=== PATIENT | male | born 1965 ===

== ENCOUNTER → 2021-11-16 17:56 | Outpatient (CLI) | payer OTHER, SELFPAY ==
[2021-11-16 18:55] LABS: COVID19 -Nasal RAPID Negative (Negative)
== END ==
PROVIDERS: Referring Provider Nurse Practitioner Family; Visit Provider Nurse Practitioner Family
DX: Z20.822 Contact with and (suspected) exposure to COVID-19 (principal)
CPT/HCPCS: 87635

== ENCOUNTER 2021-11-18 13:09 | Day surgery (SDC) | payer OTHER, SELFPAY ==
[2021-11-18] VITALS (7 sets, daily range): BP systolic 112–143; BP diastolic 61–93; PULSE 73–93; RESP 14–20; TEMP 36.8–37.5; O2SAT 92–96
--- NOTE | 2021-11-18 | PATH_ITS ---
[facility] Accession Number: [id number] . 01 Material submitted: . PART A: cecum - CECAL COLON POLYP 4MM PART B: colon - ASCENDING COLON POLYP 2MM PART C: colon - TRANSVERSE COLON TICK 4MM PART D: sigmoid colon - SIGMOID COLON POLYP X3 6MM EACH PART E: body - BIOPSY @ 20CM FRIABLE MUCOSA PART F: sigmoid colon - SIGMOID COLON POLYP 1CM . 02 Diagnosis: A. Cecal Colon Polyp 4 mm, Biopsy: Serrated lesion, cannot completely exclude sessile serrated adenoma. . B. Ascending Colon Polyp 2 mm: Tubular adenoma. . C. Transverse Colon Tick 4 mm: Inflamed granulation tissue with focal ulceration. . D. Sigmoid Colon Polyp x3, 6 mm Each: Multiple (approximately six) portions of hyperplastic polyp. . E. Biopsy at 20 cm, Friable Mucosa: Portion of colorectal mucosa s 1 with focal hyperplastic mucosal change. Superficial portion of colorectal mucosa x 1 with scattered benign lymphoid aggregates. Additional levels through the block are noncontributory. . F. Sigmoid Colon Polyp 1 cm: Portions of tubular adenoma. [facility] 11/23/2021 1638 Local . 02 Electronically signed: . Tamie Bauer MD, Pathologist NPI- [id number] . 01 Gross description: . Part A: CECAL COLON POLYP 4MM: Received in formalin is 1 fragment(s) of macdonald, soft tissue measuring 0.3 x 0.3 x 0.3 cm submitted entirely in 1 cassette(s) Part B: ASCENDING COLON POLYP 2MM: Received in formalin is 1 fragment(s) of macdonald, soft tissue measuring 0.2 x 0.2 x 0.2 cm submitted entirely in 1 cassette(s) Part C: TRANSVERSE COLON TICK 4MM: Received in formalin is 1 fragment(s) of macdonald, soft tissue measuring 0.2 x 0.2 x 0.2 cm submitted entirely in 1 cassette(s) Part D: SIGMOID COLON POLYP X3 6MM EACH: Received in formalin are multiple fragment(s) of macdonald, soft tissue measuring 0.1 x 0.1 x 0.1 cm to 0.3 x 0.3 x 0.3 cm submitted entirely in 1 cassette(s) Part E: BIOPSY @ 20CM FRIABLE MUCOSA: Received in formalin are 2 fragment(s) of macdonald, soft tissue measuring 0.2 x 0.2 x 0.2 cm to 0.3 x 0.3 x 0.2 cm submitted entirely in 1 cassette(s) Part F: SIGMOID COLON POLYP 1CM: Received in formalin are 2 fragment(s) of macdonald, soft tissue measuring 0.3 x 0.1 x 0.1 cm to 0.9 x 0.7 x 0.6 cm submitted entirely in 1 cassette(s) /DANIAL 11/21/2021 1916 Local . 02 Pathologist provided ICD-10: K63.5 . 02 CPT . 179514, 252591, 503315, 796567, 759573, 138715 Performed at: 01 [facility] [address] [place] [address], [place], [place] [id number] MD Christiano James MD Phone: [phone] Performed at: 02 [facility] [address] [place], [place] [id number] MD Haylee Smith MD Phone: [phone]
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
--- NOTE | 2021-11-18 12:01 | PM.OP.COLON ---
Operative Date/Time/Diagnoses Date of procedure: 11/18/21 Procedure Notes SCOAP/Timeout: 2:21 p.m. Procedure in detail: ENDOSCOPIST: Veronika Klein MD Sedation RN: Petra Hull RN Sedation start time: 2:22 p.m. Sedation end time: 2:56 p.m. PROCEDURE: Colonoscopy with cold snare and methylene blue left INDICATIONS: 1. Screening for colon cancer MEDICATION: Levsin 0.125 mg sublingual, incremental doses of Versed and fentanyl until appropriate level sedation achieved. ASA CLASS: 2 CECAL WITHDRAWAL TIME: 28 minutes COMPLICATIONS: None. EXTENT OF PROCEDURE: Cecum. QUALITY OF PREP: Good with portions of liquid stool. PROCEDURE: Prior to insertion of the colonoscope, a digital rectal examination was accomplished with circumferential palpation of the distal rectal mucosa without significant findings being noted. The high-definition colonoscope was passed into the rectum in the usual fashion and advanced over to the cecum without difficulty. The ileocecal valve, appendiceal stoma, and medial wall all could be inspected and a 4 mm polyp was seen and removed with cold biopsy forceps. ASCENDING COLON: As the colonoscope was withdrawn, care was taken to expose and inspect the haustral folds and a 2 mm polyp was seen and removed with cold biopsy forceps. HEPATIC FLEXURE: Normal, no polyps, diverticula or other abnormalities. TRANSVERSE COLON: Minor diverticulosis, otherwise normal no polyps or other abnormalities. DESCENDING COLON: Minor diverticulosis, otherwise, normal, no polyps or other abnormalities. SIGMOID COLON: At 20 cm there was a 1 cm longitudinal segment of friable mucosa, targeted biopsy taken x2. Otherwise, 4 small polyps between 2 and 6 mm were seen, removed with cold biopsy forceps. There was also a 1 cm polyp on a long stalk, lifted with methylene blue and removed with cold snare. Hemoclip placed at base with excellent hemostasis. RECTUM: Normal. J maneuver was produced. There was no significant perianal disease. The J maneuver was broken. The remainder of the rectum was inspected and there was no external hemorrhoid disease. The scope was withdrawn. IMPRESSION: 1. Cecum polyp x1, 4 mm, removed with cold biopsy forceps 2. Ascending polyp x1, 2 mm, removed with cold biopsy forceps 3. Sigmoid polyp x1, 1 cm, lifted with methylene blue and removed with cold snare 4. Sigmoid polyp x4, 2-6 mm, removed with cold biopsy forceps 5. Friable mucosa at 20 cm, targeted biopsy taken x2 6. Diverticulosis, left-sided, mild PLAN: 1. Follow-up in clinic status pathology results. The possibility of a missed lesion including a malignancy has been discussed with the patient previously. Potential alarm symptoms have been discussed and should be reported immediately.
[2021-11-18] MEDS: LACTATED RINGERS 1,000 ML 84 ML IV (14:11)
[2021-11-18] MEDS: fentaNYL 250 MCG/5 ML INJ IV (14:35)
[2021-11-18] MEDS: METHYLENE BLUE 50 MG/10 ML VIAL INJ (14:49)
[2021-11-18] MEDS: MIDAZOLAM 5 MG/5 ML VIAL IV (14:50)
--- NOTE | 2021-11-18 15:15 | SUR.PHASEI ---
Received to PACU after colonoscopy with sedation. Report received from CLOVIS Lambert.
== END 2021-11-18 15:52 | disposition home or self-care (01) ==
PROVIDERS: PCP Student in an Organized Health Care Education/Training Program; Referring Provider Student in an Organized Health Care Education/Training Program; Visit Provider Student in an Organized Health Care Education/Training Program
PROC: 0DJD8ZZ Inspection of Lower Intestinal Tract, Via Natural or Artificial Opening Endoscopic (ICD-10-PCS; CPT 45378; principal; 2021-11-18 14:30)
DX: Z12.11 Encounter for screening for malignant neoplasm of colon (principal); K57.30 Diverticulosis of large intestine without perforation or abscess without bleeding; D12.0 Benign neoplasm of cecum; D12.2 Benign neoplasm of ascending colon; K63.3 Ulcer of intestine; D12.5 Benign neoplasm of sigmoid colon
CPT/HCPCS: 45385; 45381; 45380; J2250; J3010; Q9968

== ENCOUNTER → 2025-10-19 16:20 | Outpatient (CLI) | payer OTHER, SELFPAY ==
--- NOTE | 2025-10-19 | DI.MRI.S_ITS ---
PROCEDURE: MR SHOULDER RT WO CON INDICATIONS: RIGHT SHOULDER PAIN TECHNIQUE: Noncontrast oblique coronal T2 fast spin echo with fat saturation, oblique sagittal T1 spin echo and T2 fast spin echo with fat saturation, axial T1 spin echo and T2 fast spin echo with fat saturation through the shoulder. COMPARISON: None. FINDINGS: Image quality: Excellent. Rotator cuff: There is low-grade articular and bursal surface partial thickness tear involving distal supraspinatus at its insertion on humeral head extending to musculotendinous junction. Distal infraspinatus tendinosis is seen. Low-grade intrasubstance partial-thickness tear involving distal subscapularis is noted. No full-thickness rotator cuff tendon rupture. Sagittal images demonstrate no significant rotator cuff muscle atrophy. Bones and bursae: Mild to moderate acromioclavicular joint osteoarthritic changes are seen. [id number] glenohumeral joint osteoarthritic changes also noted. Nonspecific subcortical cystic changes are noted involving anterior and lateral aspect of humeral head near rotator cuff tendon insertions. No acute fracture or dislocation. No suspicious intraosseous lesions. Type 1 acromion without an os acromiale. Small to moderate amount of joint effusion and subacromial subdeltoid bursal fluid is seen, no loose bodies. Capsule and soft tissues: T2 hyperintense signal and fraying involving superior anterior glenoid labrum suggestive of superior anterior labral tear. The long head of the biceps tendon demonstrates normal location and morphology. IMPRESSION: 1. Low-grade articular and bursal surface partial thickness tear involving distal supraspinatus extending to musculotendinous junction. Low-grade intrasubstance partial-thickness tear involving distal subscapularis. Distal infraspinatus tendinosis. No full-thickness rotator cuff tendon rupture. 2. [id number] acromioclavicular and glenohumeral joint osteoarthritis. No fracture or dislocation. Small to moderate amount of joint fluid and subacromial subdeltoid bursal fluid, no loose bodies. 3. Finding is concerning for superior anterior glenoid labral tear. Dictated by: Jaciel Conn M.D. on 10/19/2025 at 17:07 Approved by: Jaciel Conn M.D. on 10/19/2025 at 17:10
--- NOTE | 2025-10-19 16:23 | DI.MRI.S_ITS ---
PROCEDURE: MR CERVICAL SPINE WO CON INDICATIONS: Radicular pain in RT arm; shoulder TECHNIQUE: Noncontrast sagittal T1 spin echo and T2 fast spin echo, sagittal STIR, foraminal oblique sagittal T2 fast spin echo, and axial gradient echo or T2 fast spin echo through the cervical spine. COMPARISON: None. FINDINGS: Image quality: Excellent. Alignment and Curvature: Mild anterolisthesis of C2 on C3 and C3 on C4. Loss of the normal cervical lordosis. Bone Marrow: Degenerative endplate changes are present. Marrow demonstrates normal overall signal. Spinal Cord: Visualized spinal cord has normal size and signal. No cerebellar tonsillar herniation. Paraspinous Soft Tissues: No paravertebral masses. Prevertebral soft tissues are normal in thickness. C2-C3: Facet and uncovertebral arthropathy. No central canal stenosis. Moderate left and no right neural foraminal stenosis. C3-C4: Disc desiccation and mild posterior disc osteophyte complex. Facet and uncovertebral arthropathy. No significant central canal stenosis. Moderate bilateral neural foraminal stenosis. C4-C5: Desiccation is severe height loss. Posterior disc osteophyte complex. Facet and uncovertebral arthropathy. Mild central canal stenosis. Moderate bilateral neural foraminal stenosis. C5-C6: Disc desiccation and moderate height loss. Posterior disc osteophyte complex. Facet and uncovertebral arthropathy. No central canal stenosis. Moderate bilateral neural foraminal stenosis. C6-C7: Disc desiccation and moderate height loss. Posterior disc osteophyte complex. No significant central canal or neural foraminal stenosis. C7-T1: No central canal or neural foraminal stenosis. IMPRESSION: 1. Multilevel degenerative changes of the cervical spine as described above. 2. Mild central canal stenosis at C4-C5. 3. Multilevel moderate neural foraminal stenosis as above. Approved by: Vignesh Johnson M.D. on 10/20/2025 at 10:24
== END ==
PROVIDERS: PCP Registered Nurse; Referring Provider Registered Nurse; Visit Provider Registered Nurse
DX: M75.111 Incomplete rotator cuff tear or rupture of right shoulder, not specified as traumatic (principal); M47.812 Spondylosis without myelopathy or radiculopathy, cervical region; M43.12 Spondylolisthesis, cervical region; M19.012 Primary osteoarthritis, left shoulder; M48.02 Spinal stenosis, cervical region; M79.2 Neuralgia and neuritis, unspecified; M25.511 Pain in right shoulder; G89.29 Other chronic pain
CPT/HCPCS: 72141; 73221